=== PATIENT | male | born 1985 | race Asian ===

== ENCOUNTER 2016-06-09 10:05 | Emergency (ER) | payer OTHER ==
[2016-06-09] MEDS ORDERED: KETOROLAC TROMETHAMINE 10 MG TAB As Ordered ONE (10:22)
--- NOTE | 2016-06-09 10:32 | EDDOCDS ---
Physician Documentation [facility] Name: Deonte Rossi Age: 31 yrs Sex: Male : 1985 Arrival Date: 06/09/2016 Time: 10:05 Bed TR7 Private MD: Cisco Alonzo PA-C Disposition: 06/09/16 10:19 Discharged to Home/Self Care. Impression: Low back pain - Mechanical. - Condition is Stable. - Discharge Instructions: Back Pain, Adult, Muscle Cramps and Spasms. - Prescriptions for Naprosyn 500 mg Oral Tablet - take 1 tablet by ORAL route 2 times per day take with food; 30 tablet. Ultram 50 mg Oral Tablet - take 1 tablet by ORAL route every 6 hours As needed MDD: 4 tabs; 16 tablet. Cyclobenzaprine 10 mg Oral Tablet - take 1 tablet by ORAL route 3 times per day As needed; 15 tablet. - Medication Reconciliation form. - Follow up: Emergency Department; When: As needed; Reason: Worsening of conditions. Follow up: Cisco Alonzo; When: Call to arrange an appointment; Reason: Wound/Symptom Recheck, Recheck today's complaints, Worsening of conditions, Continuance of care. - Problem is an acute exacerbation. - Symptoms are unchanged. Historical: - Allergies: no known allergies; - Home Meds: 1. Motrin 800 mg Oral tab 1 tab as needed (Last dose: 06/09/2016 07:00) - PMHx: none; - PSHx: Hernia repair; - Social history: Smoking status: Patient states was never smoker of tobacco. No barriers to communication noted, The patient speaks fluent Beninese, Speaks appropriately for age. - Family history: Not pertinent. - : The pt / caregiver states he / she is not on anticoagulants. Home medication list is obtained from the patient. - Exposure Risk Screening:: None identified. Vital Signs: 06/09 10:07 BP 139 / 77; Pulse 74; Resp 18; Temp 98.0(O); Pulse Ox 100% on R/A; Weight 68.49 kg / nb2 150.99 lbs (R); Height 5 ft. 5 in. (165.10 cm) (R); Pain 10/10; 10:07 Body Mass Index 25.13 (68.49 kg, 165.10 cm) nb2 MDM: 10:18 ketorolac 10 mg PO once ordered. cc10 10:30 Financial registration complete. mm15 Administered Medications: 10:29 Drug: ketorolac 10 mg [ketorolac 10 mg tablet (1 tabs)] Route: PO; ead Signatures: Tabby Freeman RN RN dsRenee Amos mm15 Mita Rangel RN RN eaAngus Dixon, PA-C PA-C cc10 MTDD
--- NOTE | 2016-06-09 10:32 | EDDOCDS ---
Nurse's Notes [facility] Name: Deonte Rossi Age: 31 yrs Sex: Male : 1985 Arrival Date: 06/09/2016 Time: 10:05 Bed TR7 Private MD: Cisco Alonzo PA-C Diagnosis: Low back pain-Mechanical Presentation: 06/09 10:11 Presenting complaint: Patient states: left lower back pain that started last night. pt dsf states the pain was aggravated after running this morning. Acute neurological deficits are not present. Mechanism of Injury: No Mechanism of Injury. Adult Sepsis Screening: The patient does not have new or worsening altered mentation. Patient's respiratory rate is less than 22. Systolic blood pressure is greater than 100. Patient has a qSOFA score of 0- Negative Sepsis Screen. Suicide/Homicide risk assessment- the patient denies having any suicidal and/or homicidal ideations and does not present with any other emotional, behavioral or mental health complaints. 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 Transition of care: patient was not received from another setting of care. 10:11 Acuity: TERESA Level 4 dsf 10:11 Method Of Arrival: Walkin/Carried/Asstd dsf Triage Assessment: 10:13 General: Appears in no apparent distress, Behavior is appropriate for age, cooperative. dsf Pain: Location: left lower back Pain currently is 10 out of 10 on a pain scale. Pain does not radiate. Quality of pain is described as aching, throbbing. 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 Musculoskeletal: Reports pain in left lower back. Historical: - Allergies: no known allergies; - Home Meds: 1. Motrin 800 mg Oral tab 1 tab as needed (Last dose: 06/09/2016 07:00) - PMHx: none; - PSHx: Hernia repair; - Social history: Smoking status: Patient states was never smoker of tobacco. No barriers to communication noted, The patient speaks fluent Chinese, Speaks appropriately for age. - Family history: Not pertinent. - : The pt / caregiver states he / she is not on anticoagulants. Home medication list is obtained from the patient. - Exposure Risk Screening:: None identified. Screenin:29 Screening information is obtained from the patient. Fall risk: No risks identified. ead Assistance ADL's: requires no assistance with activities of daily living. Abuse/DV Screen: The patient / caregiver reports he/she is: not in a situation that causes fear, pain or injury. Nutritional screening: No deficits noted. home support is adequate. Assessment: 10:29 General: Appears in no apparent distress, comfortable, well nourished, well groomed, ead Behavior is appropriate for age, cooperative, pleasant. Neurological: No deficits noted. Respiratory: Airway is patent Respiratory effort is even, unlabored, Respiratory pattern is regular, symmetrical. Derm: Skin is pink, warm & dry. Musculoskeletal: Reports pain in back. Vital Signs: 10:07 BP 139 / 77; Pulse 74; Resp 18; Temp 98.0(O); Pulse Ox 100% on R/A; Weight 68.49 kg nb2 (R); Height 5 ft. 5 in. (165.10 cm) (R); Pain 10/10; 10:07 Body Mass Index 25.13 (68.49 kg, 165.10 cm) 2 Vitals: 10:07 Log In Time: June 09, 2016 at 10:00. nb2 ED Course: 10:06 Patient visited by Paula Walters. nb2 10:06 Cisco Alonzo is Private Physician. nb2 10:06 Patient moved to Waiting nb2 10:09 Patient visited by Paula Walters. nb2 10:09 Patient moved to Pre RCE nb2 10:10 [facility] Trejo [facility] cc10 10:10 Casimiro Christian MD is Attending Physician. cc10 10:12 Triage Initiated dsf 10:13 Patient moved to Triage 3 dsf 10:14 Patient visited by Angus Trejo PA-C. cc10 10:14 Patient visited by Angus Trejo PA-C. cc10 10:19 Cisco Alonzo is Referral Physician. cc10 10:28 Patient moved to TR7 ead 10:29 The patient / caregiver is instructed regarding the plan of care and ED course. ead 10:29 No IV's were initiated during this patient's visit. No procedures done that require ead assistance. Administered Medications: 10:29 Drug: ketorolac 10 mg [ketorolac 10 mg tablet (1 tabs)] Route: PO; ead Order Results: There are currently no results for this order. Outcome: 10:19 Discharge ordered by Provider. cc10 10:29 Discharge Assessment: Patient awake and alert. obeys commands, Oriented to person, ead place and time. patient administered narcotics - no. The following High Risk Discharge criteria are identified: None. Discharged to home ambulatory. Condition: unchanged. Discharge instructions given to patient, Instructed on discharge instructions, follow up and referral plans. medication usage, no driving heavy equipment, no drinking with medication, Demonstrated understanding of instructions, medications, Pt was receptive of discharge instructions/ teaching. Prescriptions given X 3. No special radiology studies were completed. Property sent home with patient. 10:30 Patient left the ED. eafermín Signatures: Tabby FreemanRN RN Mita SanchesRN Angus Bucio, PA-C PA-C cc10 Paula Walters2 MTDFermín
--- NOTE | 2016-06-11 11:32 | EDDOCDS ---
Physician Documentation [facility] Name: Deonte Rossi Age: 31 yrs Sex: Male : 1985 Arrival Date: 06/09/2016 Time: 10:05 Bed TR7 Private MD: Cisco Alonzo PA-C Disposition: 06/09/16 10:19 Discharged to Home/Self Care. Impression: Low back pain - Mechanical. - Condition is Stable. - Discharge Instructions: Back Pain, Adult, Muscle Cramps and Spasms. - Prescriptions for Naprosyn 500 mg Oral Tablet - take 1 tablet by ORAL route 2 times per day take with food; 30 tablet. Ultram 50 mg Oral Tablet - take 1 tablet by ORAL route every 6 hours As needed MDD: 4 tabs; 16 tablet. Cyclobenzaprine 10 mg Oral Tablet - take 1 tablet by ORAL route 3 times per day As needed; 15 tablet. - Medication Reconciliation form. - Follow up: Emergency Department; When: As needed; Reason: Worsening of conditions. Follow up: Cisco Alonzo; When: Call to arrange an appointment; Reason: Wound/Symptom Recheck, Recheck today's complaints, Worsening of conditions, Continuance of care. - Problem is an acute exacerbation. - Symptoms are unchanged. Historical: - Allergies: no known allergies; - Home Meds: 1. Motrin 800 mg Oral tab 1 tab as needed (Last dose: 06/09/2016 07:00) - PMHx: none; - PSHx: Hernia repair; - Social history: Smoking status: Patient states was never smoker of tobacco. No barriers to communication noted, The patient speaks fluent Belizean, Speaks appropriately for age. - Family history: Not pertinent. - : The pt / caregiver states he / she is not on anticoagulants. Home medication list is obtained from the patient. - Exposure Risk Screening:: None identified. Vital Signs: 06/09 10:07 BP 139 / 77; Pulse 74; Resp 18; Temp 98.0(O); Pulse Ox 100% on R/A; Weight 68.49 kg / nb2 150.99 lbs (R); Height 5 ft. 5 in. (165.10 cm) (R); Pain 10/10; 10:07 Body Mass Index 25.13 (68.49 kg, 165.10 cm) nb2 MDM: 10:18 ketorolac 10 mg PO once ordered. cc10 10:30 Financial registration complete. mm15 11:06 [facility] Payment Agreement was scanned into [employer] and attached to record. mm15 Administered Medications: 10:29 Drug: ketorolac 10 mg [ketorolac 10 mg tablet (1 tabs)] Route: PO; ead Signatures: Tabby Freeman RN RN dsRenee Amos mm15 Mita Rangel RN RN ead Angus Trejo, PA-C PA-C cc10 The chart was reviewed and I authenticate all verbal orders and agree with the evaluation and treatment provided.Attachments: 11:06 [facility] Payment Agreement mm15 Chart Complete MTDD
--- NOTE | 2016-06-11 11:32 | EDDOCDS ---
Nurse's Notes [facility] Name: Deonte Rossi Age: 31 yrs Sex: Male : 1985 Arrival Date: 06/09/2016 Time: 10:05 Bed TR7 Private MD: Cisco Alonzo PA-C Diagnosis: Low back pain-Mechanical Presentation: 06/09 10:11 Presenting complaint: Patient states: left lower back pain that started last night. pt dsf states the pain was aggravated after running this morning. Acute neurological deficits are not present. Mechanism of Injury: No Mechanism of Injury. Adult Sepsis Screening: The patient does not have new or worsening altered mentation. Patient's respiratory rate is less than 22. Systolic blood pressure is greater than 100. Patient has a qSOFA score of 0- Negative Sepsis Screen. Suicide/Homicide risk assessment- the patient denies having any suicidal and/or homicidal ideations and does not present with any other emotional, behavioral or mental health complaints. 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 Transition of care: patient was not received from another setting of care. 10:11 Acuity: TERESA Level 4 dsf 10:11 Method Of Arrival: Walkin/Carried/Asstd dsf Triage Assessment: 10:13 General: Appears in no apparent distress, Behavior is appropriate for age, cooperative. dsf Pain: Location: left lower back Pain currently is 10 out of 10 on a pain scale. Pain does not radiate. Quality of pain is described as aching, throbbing. 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 Musculoskeletal: Reports pain in left lower back. Historical: - Allergies: no known allergies; - Home Meds: 1. Motrin 800 mg Oral tab 1 tab as needed (Last dose: 06/09/2016 07:00) - PMHx: none; - PSHx: Hernia repair; - Social history: Smoking status: Patient states was never smoker of tobacco. No barriers to communication noted, The patient speaks fluent Angolan, Speaks appropriately for age. - Family history: Not pertinent. - : The pt / caregiver states he / she is not on anticoagulants. Home medication list is obtained from the patient. - Exposure Risk Screening:: None identified. Screenin:29 Screening information is obtained from the patient. Fall risk: No risks identified. ead Assistance ADL's: requires no assistance with activities of daily living. Abuse/DV Screen: The patient / caregiver reports he/she is: not in a situation that causes fear, pain or injury. Nutritional screening: No deficits noted. home support is adequate. Assessment: 10:29 General: Appears in no apparent distress, comfortable, well nourished, well groomed, ead Behavior is appropriate for age, cooperative, pleasant. Neurological: No deficits noted. Respiratory: Airway is patent Respiratory effort is even, unlabored, Respiratory pattern is regular, symmetrical. Derm: Skin is pink, warm & dry. Musculoskeletal: Reports pain in back. Vital Signs: 10:07 BP 139 / 77; Pulse 74; Resp 18; Temp 98.0(O); Pulse Ox 100% on R/A; Weight 68.49 kg nb2 (R); Height 5 ft. 5 in. (165.10 cm) (R); Pain 10/10; 10:07 Body Mass Index 25.13 (68.49 kg, 165.10 cm) [facility] Vitals: 10:07 Log In Time: June 09, 2016 at 10:00. nb2 ED Course: 10:06 Patient visited by Paula Walters. nb2 10:06 Cisco Alonzo is Private Physician. nb2 10:06 Patient moved to Waiting nb2 10:09 Patient visited by Paula Walters. nb2 10:09 Patient moved to Pre RCE nb2 10:10 Angus Trejo [facility]-C [facility]. cc10 10:10 Casimiro Christian MD is Attending Physician. cc10 10:12 Triage Initiated dsf 10:13 Patient moved to Triage 3 dsf 10:14 Patient visited by Angus Trejo PA-C. cc10 10:14 Patient visited by Angus Trejo PA-C. cc10 10:19 Cisco Alonzo is Referral Physician. cc10 10:28 Patient moved to TR7 ead 10:29 The patient / caregiver is instructed regarding the plan of care and ED course. ead 10:29 No IV's were initiated during this patient's visit. No procedures done that require ead assistance. 11:06 [facility] Payment Agreement was scanned into [employer] and attached to record. mm15 11:55 Patient name changed from Shakib\S\\S\Arkusari\S\ to Deonte\S\ \S\Arkusari. EDMS Administered Medications: 10:29 Drug: ketorolac 10 mg [ketorolac 10 mg tablet (1 tabs)] Route: PO; ead Order Results: There are currently no results for this order. Outcome: 10:19 Discharge ordered by Provider. cc10 10:29 Discharge Assessment: Patient awake and alert. obeys commands, Oriented to person, ead place and time. patient administered narcotics - no. The following High Risk Discharge criteria are identified: None. Discharged to home ambulatory. Condition: unchanged. Discharge instructions given to patient, Instructed on discharge instructions, follow up and referral plans. medication usage, no driving heavy equipment, no drinking with medication, Demonstrated understanding of instructions, medications, Pt was receptive of discharge instructions/ teaching. Prescriptions given X 3. No special radiology studies were completed. Property sent home with patient. 10:30 Patient left the ED. ead Signatures: Dispatcher [employer] EDMS Tabby Freeman,RN RN Renee Sullivan mm15 Mita Rangel RN RN ead Angus Trejo, PA-C PA-C cc10 Paula Walters2 Chart Complete MTDD
--- NOTE | 2016-06-11 11:32 | EDDOCDS ---
Physician Documentation [facility] Name: Deonte Rossi Age: 31 yrs Sex: Male : 1985 Arrival Date: 06/09/2016 Time: 10:05 Bed TR7 Private MD: Cisco Alonzo PA-C Disposition: 06/09/16 10:19 Discharged to Home/Self Care. Impression: Low back pain - Mechanical. - Condition is Stable. - Discharge Instructions: Back Pain, Adult, Muscle Cramps and Spasms. - Prescriptions for Naprosyn 500 mg Oral Tablet - take 1 tablet by ORAL route 2 times per day take with food; 30 tablet. Ultram 50 mg Oral Tablet - take 1 tablet by ORAL route every 6 hours As needed MDD: 4 tabs; 16 tablet. Cyclobenzaprine 10 mg Oral Tablet - take 1 tablet by ORAL route 3 times per day As needed; 15 tablet. - Medication Reconciliation form. - Follow up: Emergency Department; When: As needed; Reason: Worsening of conditions. Follow up: Cisco Alonzo; When: Call to arrange an appointment; Reason: Wound/Symptom Recheck, Recheck today's complaints, Worsening of conditions, Continuance of care. - Problem is an acute exacerbation. - Symptoms are unchanged. Historical: - Allergies: no known allergies; - Home Meds: 1. Motrin 800 mg Oral tab 1 tab as needed (Last dose: 06/09/2016 07:00) - PMHx: none; - PSHx: Hernia repair; - Social history: Smoking status: Patient states was never smoker of tobacco. No barriers to communication noted, The patient speaks fluent Vincentian, Speaks appropriately for age. - Family history: Not pertinent. - : The pt / caregiver states he / she is not on anticoagulants. Home medication list is obtained from the patient. - Exposure Risk Screening:: None identified. Vital Signs: 06/09 10:07 BP 139 / 77; Pulse 74; Resp 18; Temp 98.0(O); Pulse Ox 100% on R/A; Weight 68.49 kg / nb2 150.99 lbs (R); Height 5 ft. 5 in. (165.10 cm) (R); Pain 10/10; 10:07 Body Mass Index 25.13 (68.49 kg, 165.10 cm) nb2 MDM: 10:18 ketorolac 10 mg PO once ordered. cc10 10:30 Financial registration complete. mm15 11:06 [facility] Payment Agreement was scanned into [employer] and attached to record. mm15 Administered Medications: 10:29 Drug: ketorolac 10 mg [ketorolac 10 mg tablet (1 tabs)] Route: PO; ead Signatures: Tabby Freeman RN RN dsRenee Amos mm15 Mita Rangel RN RN ead Angus Trejo, PA-C PA-C cc10 The chart was reviewed and I authenticate all verbal orders and agree with the evaluation and treatment provided.Attachments: 11:06 [facility] Payment Agreement mm15 Chart Complete MTDD
== END 2016-06-09 10:30 | disposition home or self-care (01) ==
LOC: M ED 10:05
DX: M54.5 Low back pain (principal)

== ENCOUNTER 2017-08-06 17:36 | Emergency (ER) | payer OTHER ==
[2017-08-06] MEDS: ONDANSETRON 4 MG ORAL DISINTEGRATING TAB (Q0162 PER 1MG) PO (19:15)
[2017-08-06] MEDS: KETOROLAC 60 MG/2 ML VIAL (J1885) IM (19:15)
== END 2017-08-06 19:42 | disposition home or self-care (01) ==
LOC: M ED 17:36
DX: R10.84 Generalized abdominal pain (principal); R11.0 Nausea; R19.7 Diarrhea, unspecified
CPT/HCPCS: Q0162